=== PATIENT | female | born 1960 | race Caucasian/White ===

== ENCOUNTER → 2016-09-12 | Outpatient (CLI) | payer BC ==
[~2016-09-12] VITALS: Ht 175.3 cm; Wt 113.4 kg
[~2016-09-12] MED LIST: CALCIUM 500 +1 EACH PO; CELEXA20 MG PO; DAILY MULTIPLE1 EACH PO; HYDROCODON-ACE1 EAC7 PO; LISINOPRIL20 MG PO; SIMVASTATIN40 MG PO; VITAMIN B-12500 MC3 PO
== END | disposition home or self-care (01) ==
LOC: AMB 07:30
PROC: 0DBE8ZZ Excision of Large Intestine, Via Natural or Artificial Opening Endoscopic (ICD-10-PCS; principal; 2016-09-12)
DX: Z12.11 Encounter for screening for malignant neoplasm of colon (principal); D12.4 Benign neoplasm of descending colon; K64.9 Unspecified hemorrhoids; I10 Essential (primary) hypertension; F41.9 Anxiety disorder, unspecified; E78.5 Hyperlipidemia, unspecified; E66.9 Obesity, unspecified; Z68.37 Body mass index [BMI] 37.0-37.9, adult
CPT/HCPCS: 88305; 93005; B4087